=== PATIENT | male | born 1945 | race Caucasian/White ===

== ENCOUNTER 2019-06-12 10:20 | Outpatient (CLI) | payer OTHER, SELFPAY ==
[2019-06-12 10:59] LABS: Alanine Aminotransferase 30 U/L (4-50); Albumin Level 4.3 g/dL (3.5-5.1); Alkaline Phosphatase 69 U/L (38-126); Aspartate Amino Transferase 19 U/L (17-59); Bilirubin,Total 0.5 mg/dL (0.2-1.3); Blood Urea Nitrogen 17 mg/dL (9-20); Calcium 9.5 mg/dL (8.4-10.2); Carbon Dioxide 29 mmol/L (22-30); Chloride 102 mmol/L (98-107); Estimated Glomerular Filt Rate > 60; Glucose 100 mg/dL (75-110); Potassium 4.2 mmol/L (3.4-5.0); Sodium 137 mmol/L (137-145)
== END 2019-06-12 10:21 | disposition home or self-care (01) ==
PROVIDERS: PCP Family Medicine; Visit Provider Family Medicine
DX: I10 Essential (primary) hypertension (principal)
CPT/HCPCS: 36415; 80053

== ENCOUNTER 2019-11-24 11:19 | Outpatient (CLI) | payer OTHER, SELFPAY ==
[2019-11-24 11:48] LABS: Hematocrit 45.9 % (42.0-52.0); Hemoglobin 15.3 g/dL (14.0-18.0); Mean Corpuscular HGB Conc 33.3 g/dl (32-36); Mean Corpuscular Hemoglobin 30.5 pg (26-34); Mean Corpuscular Volume 91.4 fl (80-100); Platelet Count Result 228 k/mm3 (150-375); Red Blood Count 5.02 M/mm3 (4.6-6.20); Red Cell Distribution Width 13.5 % (11.5-14.5); White Blood Count 6.7 K/mm3 (4.5-10.0)
[2019-11-24 11:50] LABS: Add Urine Microscopic? NO; Appearance Urine Clear (Clear); Bilirubin Urine Negative (Negative); Blood Urine Negative (Negative); Color Urine Yellow (Yellow); Glucose Urine UA Negative (Negative); Ketones Urine Negative (Negative); Leukocyte Esterase Ur Negative LEU/UL (NEGATIVE); Nitrate Urine Negative (Negative); Protein Urine Negative (Negative); Specific Grav Ur 1.019 (1.001-1.035); Urobilinogen Urine Negative mg/dL (<2.0)
[2019-11-24 11:59] LABS: Alanine Aminotransferase 23 U/L (4-50); Albumin Level 4.3 g/dL (3.5-5.1); Alkaline Phosphatase 66 U/L (38-126); Anion Gap 7 mmol/L (8-16); Aspartate Amino Transferase 16 U/L (17-59); Bilirubin,Total 0.5 mg/dL (0.2-1.3); Blood Urea Nitrogen 17 mg/dL (9-20); Calcium 8.9 mg/dL (8.4-10.2); Carbon Dioxide 26 mmol/L (22-30); Chloride 101 mmol/L (98-107); Cholesterol 208 mg/dL (0-200); Estimated Glomerular Filt Rate > 60; Glucose 96 mg/dL (75-110); HDL Direct 62 mg/dL; Sodium 134 mmol/L (137-145); Triglycerides 129 mg/dL (<150)
[2019-11-24 12:10] LABS: LDL Cholesterol Direct 114 mg/dL
== END 2019-11-24 11:20 | disposition home or self-care (01) ==
PROVIDERS: PCP Family Medicine; Visit Provider Family Medicine
DX: Z00.00 Encounter for general adult medical examination without abnormal findings (principal); R35.1 Nocturia; I10 Essential (primary) hypertension
CPT/HCPCS: 36415; 80053; 80061; 81003; 85027

== ENCOUNTER → 2019-12-22 13:01 | Outpatient (CLI) | payer OTHER, SELFPAY ==
--- NOTE | ~2019-12-22 | CT_ITS ---
EXAMINATION: CT lung screening DATE: 12/22/2019 13:18 INDICATION: Personal history of tobacco dependence, prior smoker with 60 pack year history TECHNIQUE: Computed tomography (CT) of the chest was performed without intravenous contrast. The dose -length product (DLP) was 295.56 mGy-cm. Automated exposure control and iterative reconstruction tech [employer] were employed. COMPARISON: 12/26/2018 FINDINGS: No suspicious pulmonary nodules are identified. There is no pleural effusion or pneumothora x. The lungs are free of acute opacities. Mild emphysema is noted. Calcified pulmonary nodules and ca lcified right hilar and mediastinal lymph nodes are consistent with old granulomatous disease. No pat hologically enlarged thoracic lymph nodes are identified. The heart size is normal. There is a small sliding hiatal hernia. There is moderate thoracic spondylosis. IMPRESSION: 1. Lung-RADS category 1: Negative. Continue annual screening with noncontrast low-dose chest CT in 12 months. Reviewed, dictated and finalized at location B. IMPRESSION: 1. Lung-RADS category 1: Negative. Continue annual screening with noncontrast l ow-dose chest CT in 12 months.
== END ==
PROVIDERS: PCP Family Medicine; Visit Provider Family Medicine
DX: Z12.2 Encounter for screening for malignant neoplasm of respiratory organs (principal); Z87.891 Personal history of nicotine dependence
CPT/HCPCS: G0297

== ENCOUNTER 2020-06-11 08:55 | Outpatient (CLI) | payer OTHER, SELFPAY ==
[2020-06-11 09:29] LABS: Alanine Aminotransferase 26 U/L (4-50); Albumin Level 4.4 g/dL (3.5-5.1); Alkaline Phosphatase 60 U/L (38-126); Anion Gap 6 mmol/L (8-16); Aspartate Amino Transferase 18 U/L (17-59); Bilirubin,Total 0.5 mg/dL (0.2-1.3); Blood Urea Nitrogen 21 mg/dL (9-20); Calcium 9.4 mg/dL (8.4-10.2); Carbon Dioxide 29 mmol/L (22-30); Chloride 103 mmol/L (98-107); Estimated Glomerular Filt Rate 59; Glucose 101 mg/dL (75-110); Potassium 4.1 mmol/L (3.4-5.0); Sodium 138 mmol/L (137-145)
== END 2020-06-11 08:56 | disposition home or self-care (01) ==
PROVIDERS: PCP Family Medicine; Visit Provider Family Medicine
DX: I10 Essential (primary) hypertension (principal)
CPT/HCPCS: 36415; 80053

== ENCOUNTER 2020-12-03 07:33 | Outpatient (CLI) | payer OTHER, SELFPAY ==
[2020-12-03 08:29] LABS: Hematocrit 47.8 % (42.0-52.0); Hemoglobin 15.3 g/dL (14.0-18.0); Mean Corpuscular Volume 93.7 fl (80-100); Mean Platelet Volume 10.8 fl (7.4-10.4); Platelet Count Result 262 k/mm3 (150-375); Red Cell Distribution Width 13.7 % (11.5-14.5); White Blood Count 5.7 K/mm3 (4.5-10.0)
[2020-12-03 09:05] LABS: Albumin Level 4.4 g/dL (3.5-5.1); Alkaline Phosphatase 62 U/L (38-126); Anion Gap 9 mmol/L (8-16); Aspartate Amino Transferase 19 U/L (17-59); Bilirubin,Total 0.6 mg/dL (0.2-1.3); Blood Urea Nitrogen 26 mg/dL (9-20); Calcium 9.2 mg/dL (8.4-10.2); Carbon Dioxide 25 mmol/L (22-30); Chloride 104 mmol/L (98-107); Cholesterol 227 mg/dL (0-200); Estimated Glomerular Filt Rate > 60; Glucose 108 mg/dL (65-110); HDL Direct 65 mg/dL; Potassium 4.2 mmol/L (3.4-5.0); Sodium 138 mmol/L (137-145); Triglycerides 172 mg/dL (<150)
[2020-12-03 09:09] LABS: LDL Cholesterol Direct 103 mg/dL
[2020-12-03 09:25] LABS: Alanine Aminotransferase 24 U/L (4-50)
== END 2020-12-03 07:34 | disposition home or self-care (01) ==
PROVIDERS: PCP Family Medicine; Visit Provider Family Medicine
DX: E03.9 Hypothyroidism, unspecified (principal); I10 Essential (primary) hypertension; R53.83 Other fatigue; Z00.00 Encounter for general adult medical examination without abnormal findings
CPT/HCPCS: 36415; 80053; 80061; 84443; 85027

== ENCOUNTER 2021-03-03 09:09 | Outpatient (CLI) | payer OTHER, SELFPAY | END 2021-03-03 09:10 | disposition home or self-care (01) | PROVIDERS: Physician Assistant; PCP Family Medicine; Visit Provider Family Medicine | DX: E07.9 Disorder of thyroid, unspecified (principal) | CPT/HCPCS: 36415; 84443 ==

== ENCOUNTER → 2021-03-18 12:31 | Outpatient (CLI) | payer OTHER, SELFPAY ==
--- NOTE | ~2021-03-18 | CT_ITS ---
EXAMINATION: CT lung screening DATE: 03/18/2021 13:10 INDICATION: Personal history of nicotine dependence, prior smoker with 120 pack year history TECHNIQUE: Computed tomography (CT) of the chest was performed without intravenous contrast. The dose -length product (DLP) was 363.51 mGy-cm. Automated exposure control and iterative reconstruction tech [employer] were employed. COMPARISON: 12/22/2019 FINDINGS: There is mild emphysema. No suspicious pulmonary nodules are identified. The lungs are free of acute opacities. There is no pleural effusion or pneumothorax. No pathologically enlarged thoraci c lymph nodes are identified. The heart size is normal. Calcified pulmonary nodules and calcified rig ht hilar and mediastinal lymph nodes are consistent with old granulomatous disease. There is a small sliding hiatal hernia. Moderate thoracic spondylosis is noted. IMPRESSION: 1. Lung-RADS category 1: Negative. Continue annual screening with noncontrast low-dose chest CT in 12 months. Reviewed, dictated and finalized at location A. [facility] IMPRESSION: 1. Lung-RADS category 1: Negative. Continue annual screening with noncontrast l ow-dose chest CT in 12 months.
== END ==
PROVIDERS: PCP Family Medicine; Visit Provider Family Medicine
DX: Z12.2 Encounter for screening for malignant neoplasm of respiratory organs (principal); Z87.891 Personal history of nicotine dependence
CPT/HCPCS: 71271

== ENCOUNTER 2021-05-19 00:09 | Day surgery (SDC) | payer OTHER, SELFPAY ==
[2021-05-06 15:28] VITALS: BMI 37.3
[2021-05-19 08:34] VITALS: BP 142/80; PULSE 72; RESP 18; TEMP 36.8; O2SAT 98
[2021-05-19] MEDS: LACTATED RINGERS 1,000 ML 150 ML IV CONT (08:37)
--- NOTE | 2021-05-19 08:57 | P.PNAN_ITS ---
Anes - Initial Pre Proc Eval Procedure: Operation Date: 05/19/21 09:30 Proposed Procedures p Screening Colonoscopy - aJson Gomez MD Date/Time: 05/19/21 08:57 Surgeon: Jason Gomez MD Pre Op Diagnosis: neoplasm screening Patient Data Age: 75 Gender: M Height: 1.83 m Weight: 126.3 kg Last Vital Signs Temp 36.8 C 05/19/21 08:34 Pulse 72 05/19/21 08:34 Resp 18 05/19/21 08:34 BP 142/80 H 05/19/21 08:34 Pulse Ox 98 05/19/21 08:34 Allergies Allergy/AdvReac Type Severity Reaction Status Date / Time No Known Allergies Allergy Verified 05/19/21 08:32 Home Medications Medication Instructions Recorded Confirmed Type aspirin 325 mg tablet 325 mg PO DAILY 03/14/19 05/19/21 History finasteride 5 mg tablet 5 mg PO DAILY #90 tablet 02/26/21 05/19/21 Rx gabapentin 300 mg capsule See Rx Instructions .ROUTE 02/26/21 05/19/21 Rx .COMPLEX #90 cap lisinopril 20 1 tablet PO DAILY #90 tablet 02/26/21 05/19/21 Rx mg-hydrochlorothiazide 25 mg tablet Patient hx anesthesia problems: none Family hx anesthesia problems: none Results Review: All pre-operative results and documents have been reviewed as part of the pre-operative evaluation. [facility] Past Medical History Medical History (Updated 05/19/21 @ 09:19 by Jason Gomez MD) Chronic bilateral low back pain Essential (primary) hypertension Mild intermittent asthma Neuropathy MONI (obstructive sleep apnea) Personal history of other malignant neoplasm of kidney Positive colorectal cancer screening using Cologuard test Family History Family History Sibling Malignant neoplasm of prostate Family history of diabetes mellitus in first degree relative Family history of chronic obstructive pulmonary disease Mother Family history of lymphoma Social History Social History Smoking packs per day: 2 Smoking cigarettes per day: 40.0 Years smoked: 60 Smoking pack-years: 120.00 Smoking status: Former smoker Tobacco type: cigarettes Second hand tobacco smoke exposure: No Smoking end date: 04/12/15 Alcohol intake: current Drinks per week: 6 Substance use: never Substance use type: does not use Living arrangements: with family Gender identity (if verbalized by the patient): Male Sexual Orientation (if Verbalized by the Patient): Straight or Heterosexual Spiritual care concerns: No Anes - Eval Final PreProcedure Day of Procedure 05/19/21 08:57 Patient weight: obese Heart: regular rate and rhythm Lungs: clear to auscultation and normal air movement Airway: Mallampati scale class III Neurological: alert and oriented Last oral intake: >/= 8 hours ASA classification: III Emergent: no Anesthetic plan: proceed Anesthesia type and monitoring: general GIVS and standard monitoring Results Review: All pre-operative results and documents have been reviewed as part of the pre-operative evaluation. Informed Consent: The patient's anesthetic plan and its attendant risks and benefits were discussed with the patient/family/POA. Questions were solicited and answers provided to the satisfaction of the patient/family/POA.
--- NOTE | 2021-05-19 09:17 | PM.HPGS ---
History of Present Illness History of Present Illness Consent: Risks, benefits, and alternatives have been discussed and questions answered. Patient agrees to proceed with procedure. Chief complaint: neoplasm screening Narrative: John Xie is a 75 year old male who had cologuard + over a year ago but could not reschedule colonoscopy after COVID, he had a colonoscopy but more than 25 years ago. Review of Systems Constitutional: Constitutional: Denies headache(s) and Denies weakness Eyes: Eyes: Denies blurry vision ENT: Reports Normal hearing present, Denies headache(s) and Denies neck pain Cardiovascular: Cardiovascular: Denies chest pain and Denies dyspnea Respiratory: Respiratory: Denies dyspnea Gastrointestinal: Gastrointestinal: Reports no additional gastrointestinal complaints Genitourinary: Genitourinary: Denies dysuria Musculoskeletal: Musculoskeletal: Denies neck pain Integumentary/Breasts: Skin/Breast: Denies dry skin Neurologic: Reports Normal hearing present, Denies headache(s) and Denies weakness Psychiatric: Psychiatric: Denies anxiety Endocrine: Endocrine: Denies change in body appearance Hematologic/Lymphatic: Hematologic/Lymphatic: Denies easy bleeding Allergic/Immunologic: Allergic/Immunologic: Denies urticaria PMFSH Past Medical History Medical History (Updated 05/19/21 @ 09:19 by Jason Gomez MD) Chronic bilateral low back pain Essential (primary) hypertension Mild intermittent asthma Neuropathy MONI (obstructive sleep apnea) Personal history of other malignant neoplasm of kidney Positive colorectal cancer screening using Cologuard test Family History Family History Sibling Malignant neoplasm of prostate Family history of diabetes mellitus in first degree relative Family history of chronic obstructive pulmonary disease Mother Family history of lymphoma Social History Social History Smoking packs per day: 2 Smoking cigarettes per day: 40.0 Years smoked: 60 Smoking pack-years: 120.00 Smoking status: Former smoker Tobacco type: cigarettes Second hand tobacco smoke exposure: No Smoking end date: 04/12/15 Alcohol intake: current Drinks per week: 6 Substance use: never Substance use type: does not use Living arrangements: with family Gender identity (if verbalized by the patient): Male Sexual Orientation (if Verbalized by the Patient): Straight or Heterosexual Spiritual care concerns: No Meds Home Medications and Allergies Home Medications Medication Instructions Recorded Confirmed Type aspirin 325 mg tablet 325 mg PO DAILY 03/14/19 05/19/21 History finasteride 5 mg tablet 5 mg PO DAILY #90 tablet 02/26/21 05/19/21 Rx gabapentin 300 mg capsule See Rx Instructions .ROUTE 02/26/21 05/19/21 Rx .COMPLEX #90 cap lisinopril 20 1 tablet PO DAILY #90 tablet 02/26/21 05/19/21 Rx mg-hydrochlorothiazide 25 mg tablet Allergies Allergy/AdvReac Type Severity Reaction Status Date / Time No Known Allergies Allergy Verified 05/19/21 08:32 Vital Signs Vital Signs - 24 hr 05/19/21 08:34 Temperature 98.3 F Pulse Rate 72 Respiratory Rate 18 Blood Pressure 142/80 H Pulse Oximetry 98 Exam Const: General: comfortable and no acute distress HENMT: General nose exam: Normal nares present Eyes: General: appearance normal, both eyes and all related structures Neck: Neck: no JVD Resp: Auscultation: clear to auscultation bilaterally Cardio: Rate: regular rate Rhythm: regular rhythm GI: Inspection: non-distended GI Palp: Yes Soft to palpation Skin: General skin exam: normal color Neuro: General: gait normal Speech: normal speech Extrem: General: normal to inspection Psych: Mental Status: mental status grossly normal Assessment and Plan Assessment and plan (1) Positive colorectal cancer s
[2021-05-19 09:46] VITALS: BP 102/67; PULSE 60; RESP 18; O2SAT 98
[2021-05-19 09:56] VITALS: BP 121/81; PULSE 61; RESP 18; O2SAT 98
[2021-05-19 10:06] VITALS: BP 134/95; PULSE 64; RESP 24; O2SAT 99
== END 2021-05-19 10:20 | disposition home or self-care (01) ==
PROVIDERS: PCP Family Medicine; Visit Provider Internal Medicine Gastroenterology
PROC: 0DJD8ZZ Inspection of Lower Intestinal Tract, Via Natural or Artificial Opening Endoscopic (ICD-10-PCS; CPT 45378; principal; 2021-05-19 09:30)
DX: R19.5 Other fecal abnormalities (principal); K57.30 Diverticulosis of large intestine without perforation or abscess without bleeding; K64.8 Other hemorrhoids; D12.3 Benign neoplasm of transverse colon; I10 Essential (primary) hypertension; J45.20 Mild intermittent asthma, uncomplicated; G62.9 Polyneuropathy, unspecified; Z85.528 Personal history of other malignant neoplasm of kidney; Z79.82 Long term (current) use of aspirin; Z87.891 Personal history of nicotine dependence; E66.9 Obesity, unspecified; Z68.37 Body mass index [BMI] 37.0-37.9, adult
CPT/HCPCS: 45385; 88305; J2704; J7120

== ENCOUNTER 2021-07-04 08:38 | Outpatient (CLI) | payer OTHER, SELFPAY ==
[2021-07-04 09:10] LABS: Alanine Aminotransferase 23 U/L (4-50); Albumin Level 4.4 g/dL (3.5-5.1); Alkaline Phosphatase 56 U/L (38-126); Anion Gap 8 mmol/L (8-16); Aspartate Amino Transferase 18 U/L (17-59); Bilirubin,Total 0.6 mg/dL (0.2-1.3); Blood Urea Nitrogen 22 mg/dL (9-20); Carbon Dioxide 28 mmol/L (22-30); Chloride 100 mmol/L (98-107); Estimated Glomerular Filt Rate > 60; Glucose 105 mg/dL (65-110); Potassium 4.1 mmol/L (3.4-5.0); Sodium 136 mmol/L (137-145)
== END 2021-07-04 08:39 | disposition home or self-care (01) ==
LOC: ANHLAB 08:40
PROVIDERS: PCP Family Medicine; Visit Provider Family Medicine
DX: I10 Essential (primary) hypertension (principal)
CPT/HCPCS: 36415; 80053

== ENCOUNTER 2021-09-01 10:56 | Outpatient (CLI) | payer OTHER, SELFPAY ==
--- NOTE | ~2021-09-01 | XR_ITS ---
EXAMINATION: XR foot RT 2V DATE: 09/01/2021 11:21 INDICATION: Pain at the base of the right great toe TECHNIQUE: Dorsoplantar and lateral views of the right foot were obtained. COMPARISON: None. FINDINGS: Bone alignment is normal in the right foot. No acute fracture. Cerclage wire fixation at the metadiap hyseal region of the distal right fibula. 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 No erosions or periosteal reaction. Tiny heterotopic ossicle medial to the head of the first meta tarsal. IMPRESSION: 1. 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 No acute osseous abnormality. Reviewed, dictated and finalized at location B. IMPRESSION: 1. 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 No acute osseous abnormality.
[2021-09-01 11:32] LABS: Basophils Percent Auto 0.6 % (0.2-1.2); Eosinophils Absolute Auto 0.1 K/mm3 (0-0.3); Eosinophils Percent Auto 1.6 % (0-4.4); Hematocrit 47.4 % (42.0-52.0); Hemoglobin 15.8 g/dL (14.0-18.0); Immature Granulocyte Absolute 0.02 K/mm3 (0.00-0.031); Immature Granulocyte Percent A 0.3 % (0-0.5); Lymphocytes Absolute Auto 1.74 K/mm3 (0.9-3.2); Lymphocytes Percent Auto 25.4 % (18.3-44.2); Mean Corpuscular HGB Conc 33.3 g/dl (32-36); Mean Corpuscular Hemoglobin 30.6 pg (26-34); Mean Corpuscular Volume 91.7 fl (80-100); Mean Platelet Volume 11.3 fl (7.4-10.4); Monocytes Absolute Auto 0.5 K/mm3 (0.1-0.6); Monocytes Percent Auto 7.6 % (2.6-8.5); Neutrophils Absolute Auto 4.4 K/mm3 (1.3-6.7); Neutrophils Percent Auto 64.5 % (45.5-73.1); Platelet Count Result 262 k/mm3 (150-375); Red Blood Count 5.17 M/mm3 (4.6-6.20); Red Cell Distribution Width 13.2 % (11.5-14.5); White Blood Count 6.8 K/mm3 (4.5-10.0)
[2021-09-01 11:46] LABS: Uric Acid 8.1 mg/dL (3.5-8.5)
== END 2021-09-01 10:57 | disposition home or self-care (01) ==
LOC: ANHLAB 11:01
PROVIDERS: PCP Family Medicine; Visit Provider Nurse Practitioner Family
DX: M79.674 Pain in right toe(s) (principal); M19.071 Primary osteoarthritis, right ankle and foot
CPT/HCPCS: 36415; 73620; 84550; 85025

== ENCOUNTER 2021-10-19 11:28 | Emergency (ER) | payer OTHER, SELFPAY ==
--- NOTE | ~2021-10-19 | XR_ITS ---
EXAMINATION: XR chest 2V DATE: 10/19/2021 12:09 INDICATION: Cough. Generalized chest wall pain. TECHNIQUE: PA and lateral views of the chest were obtained. COMPARISON: Chest CT dated 03/18/2021 FINDINGS: The lungs are clear with no focal airspace opacities, pulmonary edema, pleural effusion or pneumothor ax. The cardiomediastinal silhouette is normal. Calcified right hilar and mediastinal lymph nodes con sistent with old granulomatous disease. Moderate thoracic spondylosis. IMPRESSION: 1. No acute cardiopulmonary disease. Reviewed, dictated and finalized at location A.
[2021-10-19 11:34] VITALS: BP 119/76; PULSE 90; RESP 16; TEMP 36.4; O2SAT 98
--- NOTE | 2021-10-19 11:56 | ED.URI ---
HPI - URI/Sore Throat General Chief Complaint: Upper Respiratory Infection Stated Complaint: Headache,Congestion Time Seen by Provider: 10/19/21 11:48 Source: patient Mode of arrival: ambulatory Limitations: no limitations History of Present Illness HPI Narrative: Patient presents today complaining of 3-day history cough that has been mildly productive, chest wall pain with coughing, and postnasal drip. Denies fever shortness of breath, nasal congestion. He has been taking antihistamines and NyQuil with some relief. Denies any history of asthma or COPD. He is a previous smoker that quit a few years ago. He has had his COVID-19 and influenza vaccines. He took a home COVID-19 test yesterday that was negative. Related Data Home Medications Medication Instructions Recorded Confirmed aspirin 325 mg tablet 325 mg PO DAILY 03/14/19 10/19/21 Review of Systems Review of Systems: CONSTITUTIONAL: Denies body aches, fever, chills, or sweats. EYES: Denies visual changes, redness, or discharge. ENT: Denies rhinorrhea, congestion, sore throat, or otalgia.+ Postnasal drip CARDIOVASCULAR: Denies chest pain, palpitations, or edema. RESPIRATORY: Denies dyspnea.+ Cough GASTROINTESTINAL: Denies abdominal pain, nausea, vomiting, or diarrhea. GENITOURINARY: Denies dysuria or hematuria. SKIN: Denies rash, itching, or wounds. MUSCULOSKELETAL: Denies back pain, joint pain, or myalgia. NEUROLOGIC: Denies headache, numbness, tingling, or weakness. PSYCH: Denies depression or anxiety. [facility] Past Medical History Medical History Chronic bilateral low back pain Essential (primary) hypertension Mild intermittent asthma Neuropathy Obesity MONI (obstructive sleep apnea) Personal history of other malignant neoplasm of kidney Positive colorectal cancer screening using Cologuard test Family History Family History Sibling Malignant neoplasm of prostate Family history of diabetes mellitus in first degree relative Family history of chronic obstructive pulmonary disease Mother Family history of lymphoma Social History Social History Smoking packs per day: 2 Smoking cigarettes per day: 40.0 Years smoked: 60 Smoking pack-years: 120.00 Smoking status: Former smoker Tobacco type: cigarettes Second hand tobacco smoke exposure: No Smoking end date: 04/12/15 Alcohol intake: current Drinks per week: 6 Substance use: never Substance use type: does not use Gender identity (if verbalized by the patient): Male Sexual Orientation (if Verbalized by the Patient): Straight or Heterosexual Spiritual care concerns: No Comments At time of signature, I have reviewed and agree with nursing past medical, surgical, social and family history unless otherwise noted. Please see nursing chart for further information. There is no relevant family history pertinent to the presenting complaint Exam Narrative: GENERAL: Well-appearing, well-nourished, and in no acute distress. HEAD: Normocephalic, atraumatic. EYES: EOMI. No redness or drainage. Conjunctivae normal. ENT: Mucous membranes pink and moist. Nares clear. No rhinorrhea. TMs normal bilaterally. Throat normal. Uvula midline. NECK: Normal AROM. Supple. No lymphadenopathy. CHEST: No respiratory distress. Clear to auscultation. HEART: Regular rate and rhythm. No murmur appreciated. Normal peripheral pulses. EXTREMITIES: Normal range of motion. No edema. SKIN: Warm, dry, no rash. Capillary refill normal. Normal skin turgor. NEURO: No focal deficits. Alert and oriented x3. Gait steady. PSYCH: Normal affect. No signs of depression or anxiety. Course Course Level of Care: Express Care Visit Vital Signs Vital signs: Vital Signs Temperature 97.5 F L 10/19/21 11:34 Pulse Rate 90 10/19/21 11
== END 2021-10-19 12:42 | disposition home or self-care (01) ==
PROVIDERS: Emergency Provider Nurse Practitioner; PCP Family Medicine
DX: J06.9 Acute upper respiratory infection, unspecified (principal); J40 Bronchitis, not specified as acute or chronic; Z87.891 Personal history of nicotine dependence; I10 Essential (primary) hypertension; J45.909 Unspecified asthma, uncomplicated; G47.33 Obstructive sleep apnea (adult) (pediatric); G62.9 Polyneuropathy, unspecified; Z85.528 Personal history of other malignant neoplasm of kidney; E66.9 Obesity, unspecified; Z68.37 Body mass index [BMI] 37.0-37.9, adult
CPT/HCPCS: 71046; 99213; G0463

== ENCOUNTER 2021-11-26 08:06 | Emergency (ER) | payer OTHER, SELFPAY ==
[2021-11-26 08:10] VITALS: BP 136/53; PULSE 65; RESP 16; TEMP 36.6; O2SAT 97
--- NOTE | 2021-11-26 08:14 | ED.WOUNDLAC ---
HPI - Wound/Laceration General Chief Complaint: Skin/Abscess/Foreign Body Stated Complaint: Hook in finger left hand Time Seen by Provider: 11/26/21 08:20 Source: patient Mode of arrival: ambulatory Limitations: no limitations History of Present Illness HPI narrative: 76-year-old male presented for complaint of fishhook embedded into the left ring finger, injury occurred about 1 hour prior to arrival. He came directly to [facility]. Takes daily ASA 325mg. Unsure of tetanus vaccination status. Related Data Home Medications Medication Instructions Recorded Confirmed aspirin 325 mg tablet 325 mg PO DAILY 03/14/19 11/26/21 Allergies Allergy/AdvReac Type Severity Reaction Status Date / Time No Known Allergies Allergy Verified 11/26/21 08:20 Review of Systems Review of Systems: CONSTITUTIONAL: Denies body aches, fever, chills, or sweats. EYES: Denies visual changes, redness, or discharge. ENT: Denies rhinorrhea, congestion, sore throat, or otalgia. CARDIOVASCULAR: Denies chest pain, palpitations, or edema. RESPIRATORY: Denies cough or dyspnea. GASTROINTESTINAL: Denies abdominal pain, nausea, vomiting, or diarrhea. SKIN: fish hook in finger MUSCULOSKELETAL: Denies back pain, joint pain, or myalgia. NEUROLOGIC: Denies headache, numbness, tingling, or weakness. [facility] Past Medical History Medical History Chronic bilateral low back pain Essential (primary) hypertension Mild intermittent asthma Neuropathy Obesity MONI (obstructive sleep apnea) Personal history of other malignant neoplasm of kidney Positive colorectal cancer screening using Cologuard test Family History Family History Sibling Malignant neoplasm of prostate Family history of diabetes mellitus in first degree relative Family history of chronic obstructive pulmonary disease Mother Family history of lymphoma Social History Social History Smoking packs per day: 2 Smoking cigarettes per day: 40.0 Years smoked: 60 Smoking pack-years: 120.00 Smoking status: Former smoker Tobacco type: cigarettes Second hand tobacco smoke exposure: No Smoking end date: 04/12/15 Alcohol intake: current Drinks per week: 6 Substance use: never Substance use type: does not use Gender identity (if verbalized by the patient): Male Sexual Orientation (if Verbalized by the Patient): Straight or Heterosexual Spiritual care concerns: No Comments At time of signature, I have reviewed and agree with nursing past medical, surgical, social and family history unless otherwise noted. Please see nursing chart for further information. There is no relevant family history pertinent to the presenting complaint Exam Narrative: GENERAL: Well-appearing EYES: conjunctivae clear, and EOMI. ENT: Mucous membranes moist. CHEST: No respiratory distress. SKIN: Warm, dry. Fish hook left ring finger distal phalanx ulnar aspect NEURO: Alert and oriented x3. PSYCH: Normal mood and affect Course Course Emergency Course: Patient is aware of diagnosis, understands and agrees to treatment plan. Anticipatory guidance given. Patient agrees to follow-up as directed and is aware of reasons to seek care at the emergency department. Portions of this record may have been created with voice recognition software Level of Care: Express Care Visit Vital Signs Vital signs: Vital Signs Temperature 97.9 F 11/26/21 08:10 Pulse Rate 65 11/26/21 08:10 Respiratory Rate 16 11/26/21 08:10 Blood Pressure 136/53 L 11/26/21 08:10 Pulse Oximetry 97 11/26/21 08:10 Oxygen Delivery Room Air 11/26/21 08:10 Temperature 97.9 F 11/26/21 08:10 Pulse Rate 65 11/26/21 08:10 Respiratory Rate 16 11/26/21 08:10 Blood Pressure 136/53 L 11/26/21 08:10 Pulse Oximetry 97 11/26/21 08:
[2021-11-26] MEDS: TETANUS,DIPHTHERIA,AC PERTUSSIS ADULT (0.5 ML) BOOSTRIX IM (08:27)
== END 2021-11-26 08:46 | disposition home or self-care (01) ==
PROVIDERS: Emergency Provider Nurse Practitioner Family; PCP Family Medicine
DX: S61.245A Puncture wound with foreign body of left ring finger without damage to nail, initial encounter (principal); X58.XXXA Exposure to other specified factors, initial encounter; Z23 Encounter for immunization; Z87.891 Personal history of nicotine dependence; I10 Essential (primary) hypertension; J45.909 Unspecified asthma, uncomplicated; G62.9 Polyneuropathy, unspecified; E66.9 Obesity, unspecified; Z68.38 Body mass index [BMI] 38.0-38.9, adult; G47.33 Obstructive sleep apnea (adult) (pediatric); Z85.528 Personal history of other malignant neoplasm of kidney; Z79.82 Long term (current) use of aspirin
CPT/HCPCS: 90471; 90715; 99213; G0463

== ENCOUNTER 2021-11-28 10:04 | Outpatient (CLI) | payer OTHER, SELFPAY ==
[2021-11-28 10:34] LABS: Appearance Urine Clear (Clear); Bilirubin Urine Negative (Negative); Color Urine Yellow (Yellow); Glucose Urine UA Negative (Negative); Ketones Urine Negative (Negative); Leukocyte Esterase Ur Negative LEU/UL (NEGATIVE); Nitrate Urine Negative (Negative); Protein Urine Negative (Negative); Urobilinogen Urine 0.2 mg/dL (<2.0); pH Urine 6.5 (5.0-9.0)
[2021-11-28 10:41] LABS: Add Urine Microscopic? YES; Blood Urine Trace-Intact (Negative)
[2021-11-28 10:46] LABS: Mucus Urine Rare /lpf; RBC Urine 0-2 /hpf (0-2); WBC Urine 0-3 /hpf (0-3)
[2021-11-28 10:48] LABS: Alanine Aminotransferase 21 U/L (6-50); Albumin Level 4.1 g/dL (3.5-5.1); Alkaline Phosphatase 59 U/L (38-126); Anion Gap 9 mmol/L (8-16); Aspartate Amino Transferase 16 U/L (17-59); Bilirubin,Total 0.5 mg/dL (0.2-1.3); Blood Urea Nitrogen 23 mg/dL (9-20); Calcium 9.3 mg/dL (8.4-10.2); Carbon Dioxide 27 mmol/L (22-30); Chloride 101 mmol/L (98-107); Cholesterol 210 mg/dL (0-200); Estimated Glomerular Filt Rate 54; Glucose 104 mg/dL (65-110); HDL Direct 57 mg/dL; Potassium 4.3 mmol/L (3.4-5.0); Sodium 137 mmol/L (137-145); Triglycerides 157 mg/dL (<150)
[2021-11-28 11:00] LABS: LDL Cholesterol Direct 106 mg/dL
[2021-11-28 11:03] LABS: Hemoglobin A1C 5.6 % (<5.7)
[2021-11-28 13:21] LABS: Prostate Specific Antigen 0.4 ng/mL (< OR = 4.0)
== END 2021-11-28 10:05 | disposition home or self-care (01) ==
LOC: ANHLAB 10:05
PROVIDERS: PCP Family Medicine; Visit Provider Nurse Practitioner Family
DX: N39.0 Urinary tract infection, site not specified (principal); E03.9 Hypothyroidism, unspecified; E78.2 Mixed hyperlipidemia; Z12.5 Encounter for screening for malignant neoplasm of prostate; R73.01 Impaired fasting glucose; G47.33 Obstructive sleep apnea (adult) (pediatric); E04.1 Nontoxic single thyroid nodule; I10 Essential (primary) hypertension
CPT/HCPCS: 36415; 80053; 80061; 81001; 83036; 84153; 84443; G0103

== ENCOUNTER → 2021-12-10 09:31 | Outpatient (CLI) | payer OTHER, SELFPAY ==
--- NOTE | ~2021-12-10 | XR_ITS ---
EXAM: XR_CERV2-3V_CR DATE: 12/10/2021 10:05 HISTORY: M54.2 - Cervicalgia . COMPARISON: None available. FINDINGS: C6 and below are not well-visualized in the lateral projection. Decreased mineralization. C raniocervical association and atlantoaxial joint are normal. No prevertebral soft tissue swelling. St raightening of the upper cervical spine Vertebral bodies are aligned. Vertebral body heights are main tained. Multilevel mild disc space narrowing. Multilevel facet sclerosis and hypertrophy. IMPRESSION: Limited examination as detailed above. Osteopenia. Multilevel mild degenerative disc dise ase. Multilevel facet arthropathy. Reviewed, dictated and finalized at location K. IMPRESSION: Limited examination as detailed above. Osteopenia. Multilevel mild degenerative disc disease. Multilevel facet arthropathy.
--- NOTE | ~2021-12-10 | XR_ITS ---
EXAM: XR lumbar spine 2-3V DATE: 12/10/2021 10:06 HISTORY: M54.5 - Low back pain . COMPARISON: EXAM: XR lumbar spine 2-3V DATE: 12/10/2021 10:06 HISTORY: M54.5 - Low back pain . COMPARISON: None available. FINDINGS: 5 nonrib-bearing lumbar-type vertebral bodies. Pedicles intact. Normal vertebral body alig nment. Vertebral body heights preserved. Multilevel disc space narrowing and marginal osteophytosis, severe at L5-S1, mild at L3-4, and moderate at all remaining lumbar levels. Multilevel facet arthropa thy and sclerosis with interspinous narrowing at all lumbar levels. No fracture or dislocation. Mild fusiform dilation of the abdominal aortic aneurysm. IMPRESSION: Multilevel degenerative disc disease. Multilevel severe facet arthropathy. 3.3 cm abdomin al aortic aneurysm, consider ultrasound of the aorta for further evaluation and to establish a baseli ne for future surveillance. Reviewed, dictated and finalized at location K. IMPRESSION: Multilevel degenerative disc disease. Multilevel severe facet arthr opathy. 3.3 cm abdominal aortic aneurysm, consider ultrasound of the aorta for further evaluation and to establish a baseline for future surveillance.
== END ==
PROVIDERS: PCP Family Medicine; Visit Provider Family Medicine
DX: M47.817 Spondylosis without myelopathy or radiculopathy, lumbosacral region (principal); M47.812 Spondylosis without myelopathy or radiculopathy, cervical region
CPT/HCPCS: 72040; 72100

== ENCOUNTER → 2021-12-19 09:02 | Outpatient (CLI) | payer OTHER, SELFPAY ==
--- NOTE | ~2021-12-19 | US_ITS ---
EXAMINATION: US aorta DATE: 12/19/2021 09:38 INDICATION: Abdominal aortic aneurysm without rupture TECHNIQUE: Grayscale, color Doppler, and pulsed Doppler images of the aorta and common iliac arteries were obtained. COMPARISON: CT abdomen and pelvis dated 08/16/2015 FINDINGS: The proximal aorta measures 3.1 cm. The mid aorta measures 2.3 cm. The distal aorta measures 2.3 cm. The right common iliac artery measures 1.5 cm. The left common iliac artery measures 1.4 cm. IMPRESSION: 1. No abdominal aortic aneurysm. Reviewed, dictated and finalized at location A.
== END ==
PROVIDERS: PCP Family Medicine; Visit Provider Family Medicine
DX: I71.4 Abdominal aortic aneurysm, without rupture (principal)
CPT/HCPCS: 76775

== ENCOUNTER 2022-03-11 11:10 | Outpatient (CLI) | payer OTHER, SELFPAY ==
[2022-03-11 11:50] LABS: Alanine Aminotransferase 28 U/L (6-50); Albumin Level 4.5 g/dL (3.5-5.1); Alkaline Phosphatase 53 U/L (38-126); Anion Gap 9 mmol/L (8-16); Aspartate Amino Transferase 18 U/L (17-59); Bilirubin,Total 0.8 mg/dL (0.2-1.3); Blood Urea Nitrogen 18 mg/dL (9-20); Calcium 8.6 mg/dL (8.4-10.2); Carbon Dioxide 26 mmol/L (22-30); Chloride 100 mmol/L (98-107); Estimated Glomerular Filt Rate > 60; Glucose 98 mg/dL (65-110); Potassium 4.1 mmol/L (3.4-5.0); Sodium 135 mmol/L (137-145)
== END 2022-03-11 11:11 | disposition home or self-care (01) ==
LOC: ANHLAB 11:12
PROVIDERS: PCP Family Medicine; Visit Provider Nurse Practitioner Family
DX: I10 Essential (primary) hypertension (principal)
CPT/HCPCS: 36415; 80053

== ENCOUNTER 2022-06-09 11:00 | Outpatient (CLI) | payer OTHER, SELFPAY ==
[2022-06-09 12:21] LABS: Alanine Aminotransferase 29 U/L (6-50); Alkaline Phosphatase 63 U/L (38-126); Anion Gap 9 mmol/L (8-16); Aspartate Amino Transferase 18 U/L (17-59); Bilirubin,Total 0.4 mg/dL (0.2-1.3); Blood Urea Nitrogen 29 mg/dL (9-20); Calcium 8.7 mg/dL (8.4-10.2); Carbon Dioxide 26 mmol/L (22-30); Chloride 106 mmol/L (98-107); Estimated Glomerular Filt Rate 59; Glucose 95 mg/dL (65-110); Potassium 4.1 mmol/L (3.4-5.0); Sodium 141 mmol/L (137-145)
== END 2022-06-09 11:01 | disposition home or self-care (01) ==
PROVIDERS: PCP Family Medicine; Visit Provider Family Medicine
DX: I10 Essential (primary) hypertension (principal)
CPT/HCPCS: 36415; 80053

== ENCOUNTER → 2022-06-23 08:15 | Outpatient (CLI) | payer OTHER, SELFPAY ==
--- NOTE | ~2022-06-23 | CT_ITS ---
EXAMINATION: CT lung screening DATE: 06/23/2022 08:26 INDICATION: lung cancer screening TECHNIQUE: Computed tomography (CT) of the chest was performed without intravenous contrast. Addition al 3D reconstructions utilizing coronal maximum intensity projection (MIP) were performed. Automated exposure control and iterative reconstruction technique were employed. The dose-length product was 31 6.43 mGy-cm. COMPARISON: None FINDINGS: Couple small calcified right lower lobe nodules along with calcified right hilar and mediastinal lymp h nodes consistent with old granulomatous disease. 2 mm noncalcified left upper lobe nodule. Addition al 5 mm pleural-based nodule at the posterior right lower lobe. No pneumonia, pulmonary edema, pleura l effusion or pneumothorax. Heart size normal. Atherosclerotic coronary artery calcific lesion. No pe ricardial effusion. Small sliding-type hiatal hernia. Thoracic aorta is normal in caliber. No patholo gically enlarged thoracic lymphadenopathy. A few small splenic calcific lesions consistent with old g ranulomatous disease. 1.6 cm cyst at the upper pole of the right kidney. Moderate to severe thoracic spondylosis. IMPRESSION: 1. Lung-RADS category 2: Benign appearance or behavior. Continue annual screening with noncontrast lo w-dose chest CT in 12 months. Reviewed, dictated and finalized at location L. IMPRESSION: 1. Lung-RADS category 2: Benign appearance or behavior. Continue annual screeni ng with noncontrast low-dose chest CT in 12 months.
== END ==
PROVIDERS: PCP Family Medicine; Visit Provider Family Medicine
DX: Z12.2 Encounter for screening for malignant neoplasm of respiratory organs (principal); Z87.891 Personal history of nicotine dependence
CPT/HCPCS: 71271

== ENCOUNTER 2022-11-27 09:00 | Outpatient (CLI) | payer OTHER, SELFPAY ==
[2022-11-27 10:50] LABS: Hematocrit 46.6 % (42.0-52.0); Hemoglobin 15.2 g/dL (14.0-18.0); Mean Corpuscular HGB Conc 32.6 g/dl (32-36); Mean Corpuscular Hemoglobin 30.3 pg (26-34); Mean Corpuscular Volume 92.8 fl (80-100); Mean Platelet Volume 11.5 fl (7.4-10.4); Platelet Count Result 232 k/mm3 (150-375); Red Blood Count 5.02 M/mm3 (4.6-6.20); Red Cell Distribution Width 13.8 % (11.5-14.5); White Blood Count 6.2 K/mm3 (4.5-10.0)
[2022-11-27 10:55] LABS: Appearance Urine Clear (Clear); Bilirubin Urine Negative (Negative); Blood Urine Negative (Negative); Color Urine Yellow (Yellow); Glucose Urine UA Negative (Negative); Ketones Urine Negative (Negative); Leukocyte Esterase Ur Negative LEU/UL (NEGATIVE); Nitrate Urine Negative (Negative); Protein Urine Negative (Negative); Specific Grav Ur 1.018 (1.001-1.035); Urobilinogen Urine 0.2 mg/dL (<2.0); pH Urine 5.5 (5.0-9.0)
[2022-11-27 11:01] LABS: Add Urine Microscopic? NO
[2022-11-27 11:08] LABS: Alanine Aminotransferase 26 U/L (6-50); Albumin Level 4.3 g/dL (3.5-5.1); Alkaline Phosphatase 48 U/L (38-126); Anion Gap 8 mmol/L (8-16); Aspartate Amino Transferase 20 U/L (17-59); Bilirubin,Total 0.7 mg/dL (0.2-1.3); Blood Urea Nitrogen 27 mg/dL (9-20); Calcium 8.8 mg/dL (8.4-10.2); Carbon Dioxide 26 mmol/L (22-30); Chloride 103 mmol/L (98-107); Cholesterol 226 mg/dL (0-200); Estimated Glomerular Filt Rate 59; Glucose 102 mg/dL (65-110); HDL Direct 53 mg/dL; Potassium 4.6 mmol/L (3.4-5.0); Sodium 137 mmol/L (137-145); Triglycerides 175 mg/dL (<150); Uric Acid 8.8 mg/dL (3.5-8.5)
[2022-11-27 11:18] LABS: LDL Cholesterol Direct 124 mg/dL
== END 2022-11-27 09:01 | disposition home or self-care (01) ==
PROVIDERS: PCP Family Medicine; Visit Provider Family Medicine
DX: Z00.00 Encounter for general adult medical examination without abnormal findings (principal); R53.83 Other fatigue; E78.5 Hyperlipidemia, unspecified; I10 Essential (primary) hypertension
CPT/HCPCS: 36415; 80053; 80061; 81003; 84443; 84550; 85027

== ENCOUNTER 2023-01-21 08:49 | Outpatient (CLI) | payer OTHER, SELFPAY ==
[2023-01-21 10:26] LABS: Anion Gap 7 mmol/L (8-16); Blood Urea Nitrogen 21 mg/dL (9-20); Calcium 8.8 mg/dL (8.4-10.2); Carbon Dioxide 27 mmol/L (22-30); Chloride 105 mmol/L (98-107); Estimated Glomerular Filt Rate 59; Glucose 100 mg/dL (65-110); Sodium 139 mmol/L (137-145)
== END 2023-01-21 08:50 | disposition home or self-care (01) ==
LOC: ANHLAB 08:51
PROVIDERS: PCP Family Medicine; Visit Provider Physician Assistant
DX: M10.9 Gout, unspecified (principal)
CPT/HCPCS: 36415; 80048; 84550

== ENCOUNTER 2023-06-01 11:04 | Outpatient (CLI) | payer OTHER, SELFPAY ==
[2023-06-01 12:04] LABS: Alanine Aminotransferase 18 U/L (6-50); Albumin Level 4.1 g/dL (3.5-5.1); Alkaline Phosphatase 62 U/L (38-126); Anion Gap 7 mmol/L (8-16); Aspartate Amino Transferase 17 U/L (17-59); Bilirubin,Total 0.7 mg/dL (0.2-1.3); Blood Urea Nitrogen 31 mg/dL (9-20); Calcium 9.4 mg/dL (8.4-10.2); Carbon Dioxide 28 mmol/L (22-30); Chloride 102 mmol/L (98-107); Estimated Glomerular Filt Rate 49; Glucose 111 mg/dL (65-110); Potassium 4.2 mmol/L (3.4-5.0); Sodium 137 mmol/L (137-145); Uric Acid 7.4 mg/dL (3.5-8.5)
== END 2023-06-01 11:05 | disposition home or self-care (01) ==
LOC: ANHLAB 11:07
PROVIDERS: PCP Family Medicine; Visit Provider Family Medicine
DX: M10.9 Gout, unspecified (principal); I10 Essential (primary) hypertension
CPT/HCPCS: 36415; 80053; 84550

== ENCOUNTER 2023-07-07 12:22 | Outpatient (CLI) | payer OTHER, SELFPAY ==
--- NOTE | ~2023-07-07 | XR_ITS ---
EXAMINATION: XR chest 2V 07/07/2023 12:36 INDICATION: Chronic cough PROCEDURE: 2 view chest COMPARISON: 10/19/2021 FINDINGS: The lungs are clear. The cardiomediastinal silhouette is within normal limits. There are no pleural effusions. There is no pneumothorax suspected. IMPRESSION: 1: NO ACUTE CARDIOPULMONARY DISEASE. Reviewed, dictated and finalized at location B.
== END 2023-07-07 12:23 | disposition home or self-care (01) ==
LOC: ANHIMG 12:24
PROVIDERS: PCP Family Medicine; Visit Provider Physician Assistant
DX: R05.3 Chronic cough (principal)
CPT/HCPCS: 71046

== ENCOUNTER 2023-07-15 10:13 | Outpatient (CLI) | payer OTHER, SELFPAY ==
--- NOTE | ~2023-07-15 | CT_ITS ---
CT Scan of the Chest without Contrast: Clinical Indication: Lung cancer screening, nicotine dependence Technique: Contiguous sections were acquired throughout the chest without intravenous contrast. Dose reduction technique was used on this scan by utilizing automated exposure control and iterative recon struction technique. The dose-length product (DLP) was 368.27 mGy-cm. COMPARISON: 06/23/2022 Findings: There is no evidence of any significant mediastinal, hilar or axillary lymphadenopathy. There are ath erosclerotic calcific effusion of the aorta and coronary arteries. Calcified subcarinal and right hil ar lymph nodes are present. There is no evidence of pleural or pericardial effusion. Stable subcentimeter pleural-based nodule at the posterior right upper lobe. Images through the upper abdomen reveal no abnormalities. Impression: Lung RADS 2: Benign appearance. 12 month follow-up screening CT advised. Reviewed, dictated and finalized at [facility]. Impression: Lung RADS 2: Benign appearance. 12 month follow-up screening CT advised.
== END 2023-07-15 10:14 ==
LOC: MICIMG 10:14
PROVIDERS: PCP Family Medicine; Visit Provider Family Medicine
DX: Z12.2 Encounter for screening for malignant neoplasm of respiratory organs (principal); Z87.891 Personal history of nicotine dependence
CPT/HCPCS: 71271

== ENCOUNTER 2023-09-01 09:37 | Outpatient (CLI) | payer OTHER, SELFPAY ==
[2023-09-01 10:39] LABS: Alanine Aminotransferase 17 U/L (6-50); Albumin Level 4.2 g/dL (3.5-5.1); Alkaline Phosphatase 57 U/L (38-126); Anion Gap 7 mmol/L (4-12); Aspartate Amino Transferase 17 U/L (17-59); Bilirubin,Total 0.6 mg/dL (0.2-1.3); Blood Urea Nitrogen 27 mg/dL (9-20); Carbon Dioxide 26 mmol/L (22-30); Chloride 105 mmol/L (98-107); Estimated Glomerular Filt Rate 59; Glucose 98 mg/dL (65-110); Potassium 4.2 mmol/L (3.4-5.0); Sodium 138 mmol/L (137-145)
== END 2023-09-01 09:38 | disposition home or self-care (01) ==
LOC: ANHLAB 09:38
PROVIDERS: PCP Family Medicine; Visit Provider Family Medicine
DX: I10 Essential (primary) hypertension (principal)
CPT/HCPCS: 36415; 80053

== ENCOUNTER 2023-12-07 10:41 | Outpatient (CLI) | payer OTHER, SELFPAY ==
[2023-12-07 11:31] LABS: Alanine Aminotransferase 20 U/L (6-50); Albumin Level 4.3 g/dL (3.5-5.1); Alkaline Phosphatase 63 U/L (38-126); Anion Gap 10 mmol/L (4-12); Aspartate Amino Transferase 17 U/L (17-59); Bilirubin,Total 0.7 mg/dL (0.2-1.3); Blood Urea Nitrogen 24 mg/dL (9-20); Calcium 9.2 mg/dL (8.4-10.2); Carbon Dioxide 25 mmol/L (22-30); Chloride 100 mmol/L (98-107); Estimated Glomerular Filt Rate 59; Glucose 99 mg/dL (65-110); Potassium 4.3 mmol/L (3.4-5.0); Sodium 135 mmol/L (137-145)
== END 2023-12-07 10:42 | disposition home or self-care (01) ==
LOC: ANHLAB 10:43
PROVIDERS: PCP Family Medicine; Visit Provider Family Medicine
DX: I10 Essential (primary) hypertension (principal)
CPT/HCPCS: 36415; 80053

== ENCOUNTER 2024-05-29 07:25 | Outpatient (CLI) | payer OTHER, SELFPAY ==
--- OUTSIDE RECORDS SUMMARY | 2024-05-29 07:30 | XMS_ITS | Clinical Summary ---
Author Organization [facility] Address [facility] [place] [address] Care Team Providers Care Automatic Wheel Line Operator Name Role Phone Unavailable Primary Care Provider Unavailabl e Social History Tobacco Use Types Packs/Day Years Used Date Smoking Tobacco: Never Assessed Sex and Gender Information Value Date Recorded Sex Assigned at Not on file Legal Sex Male 6:08 PM CDT Gender Identity Not on file Sexual Orientation Not on file Plan of Treatment Health Maintenance Due Date Last Done Comments Hepatitis C 1963 DTaP, Tdap and Td Vaccines ( 1 - Tdap) 1965 Zoster Vaccines (1 of 2) 1996 Pneumococcal Vaccine: 65+ Ye ars (1 of 1 - PCV) 07/28/2011 RSV Immunization or 60+ Years (1 - 1-dose 75+ series) 2021 COVID-19 Vaccine ( - 2023-2 5 season) 2023 Influenza Adult (#1) 2024 Meningococcal B Vaccine Aged Out No l onger eligible based on patient's age to complete this topic Meningococcal Vaccine Aged Out No nicolas kayce eligible based on patient's age to complete this topic RSV Immunizations Under 20 Months Aged Out No longer eligible based on patient's age to complete this topic
[2024-05-29 08:15] LABS: Hematocrit 47.9 % (42.0-52.0); Hemoglobin 15.2 g/dL (14.0-18.0); Mean Corpuscular HGB Conc 31.7 g/dl (32-36); Mean Corpuscular Hemoglobin 30.6 pg (26-34); Mean Corpuscular Volume 96.6 fl (80-100); Mean Platelet Volume 11.3 fl (7.4-10.4); Platelet Count Result 231 k/mm3 (150-375); Red Blood Count 4.96 M/mm3 (4.6-6.20); Red Cell Distribution Width 14.3 % (11.5-14.5)
[2024-05-29 08:15] LABS: Add Urine Microscopic? YES; Appearance Urine Clear (Clear); Bacteria Urine None Seen /hpf; Bilirubin Urine Negative (Negative); Blood Urine Negative (Negative); Color Urine Yellow (Yellow); Glucose Urine UA Negative (Negative); Ketones Urine Negative (Negative); Leukocyte Esterase Ur Negative LEU/UL (Negative); Nitrate Urine Negative (Negative); Non Pathogenic Casts 0-2; Protein Urine Trace mg/dL (Negative); RBC Urine 0-2 /hpf (0-2); Squamous Epithelial Cell Urine None Seen /hpf (Few); Urobilinogen Urine 0.2 mg/dL (<2.0); WBC Urine 0-5 /hpf (0-3)
[2024-05-29 08:27] LABS: Alanine Aminotransferase 24 U/L (6-50); Alkaline Phosphatase 65 U/L (38-126); Anion Gap 7 mmol/L (4-12); Aspartate Amino Transferase 18 U/L (17-59); Bilirubin,Total 0.6 mg/dL (0.2-1.3); Blood Urea Nitrogen 22 mg/dL (9-20); Calcium 9.2 mg/dL (8.4-10.2); Carbon Dioxide 31 mmol/L (22-30); Chloride 101 mmol/L (98-107); Cholesterol 198 mg/dL (0-200); Estimated Glomerular Filt Rate > 60; Glucose 104 mg/dL (65-110); HDL Direct 64 mg/dL; Potassium 3.8 mmol/L (3.4-5.0); Sodium 139 mmol/L (137-145); Triglycerides 129 mg/dL (<150); Uric Acid 5.5 mg/dL (3.5-8.5)
[2024-05-29 08:38] LABS: LDL Cholesterol Direct 114 mg/dL
== END 2024-05-29 07:26 | disposition home or self-care (01) ==
LOC: ANHLAB 07:27
PROVIDERS: PCP Family Medicine; Visit Provider Physician Assistant
DX: E04.1 Nontoxic single thyroid nodule (principal); I10 Essential (primary) hypertension; R79.89 Other specified abnormal findings of blood chemistry; M54.50 Low back pain, unspecified; G89.29 Other chronic pain; M10.9 Gout, unspecified; E66.9 Obesity, unspecified
CPT/HCPCS: 36415; 80053; 80061; 81001; 84443; 84550; 85027

== ENCOUNTER 2024-06-17 07:34 | Outpatient (CLI) | payer OTHER, SELFPAY ==
--- OUTSIDE RECORDS SUMMARY | 2024-06-17 07:36 | XMS_ITS | Clinical Summary ---
Author Organization [facility] Address [facility] [place] [address] Care Team Providers Care Medicaid Analyst Name Role Phone Unavailable Primary Care Provider [...]
[2024-06-17 09:09] LABS: Free T4 Free Thyroxine 1.18 ng/dL (0.78-2.19)
== END 2024-06-17 07:35 | disposition home or self-care (01) ==
LOC: ANHLAB 07:35
PROVIDERS: PCP Family Medicine; Visit Provider Physician Assistant Medical
DX: E05.90 Thyrotoxicosis, unspecified without thyrotoxic crisis or storm (principal); R79.89 Other specified abnormal findings of blood chemistry
CPT/HCPCS: 36415; 84439; 84443

== ENCOUNTER 2024-09-20 08:36 | Outpatient (CLI) | payer OTHER, SELFPAY ==
--- NOTE | ~2024-09-20 | CT_ITS ---
CT Scan of the Chest without Contrast: Clinical Indication: Pulmonary nodule Technique: Contiguous sections were acquired throughout the chest without intravenous contrast. Dose reduction technique was used on this scan by utilizing automated exposure control and iterative recon struction technique. The dose-length product (DLP) was 622.15 mGy-cm. COMPARISON: 07/15/2023 Findings: There is no evidence of any significant mediastinal, hilar or axillary lymphadenopathy. Calcified med iastinal and right hilar lymph nodes are present coronary artery calcifications are present. There is no evidence of pleural or pericardial effusion. Stable tiny pleural-based nodule posterior right upper lobe. Images through the upper abdomen reveal small hiatal hernia. Impression: Stable tiny pleural-based nodule at the posterior right upper lobe. Reviewed, dictated and finalized at location . Impression: Stable tiny pleural-based nodule at the posterior right upper lobe.
== END 2024-09-20 08:37 | disposition home or self-care (01) ==
LOC: MICIMG 08:38
PROVIDERS: PCP Family Medicine; Visit Provider Physician Assistant Medical
DX: R91.1 Solitary pulmonary nodule (principal)
CPT/HCPCS: 71250

== ENCOUNTER 2024-11-24 09:53 | Outpatient (CLI) | payer OTHER, SELFPAY ==
[2024-11-24 10:39] LABS: Alanine Aminotransferase 23 U/L (6-50); Albumin Level 4.2 g/dL (3.5-5.1); Alkaline Phosphatase 68 U/L (38-126); Anion Gap 7 mmol/L (4-12); Aspartate Amino Transferase 21 U/L (17-59); Bilirubin,Total 0.5 mg/dL (0.2-1.3); Blood Urea Nitrogen 24 mg/dL (9-20); Calcium 9.3 mg/dL (8.4-10.2); Carbon Dioxide 25 mmol/L (22-30); Chloride 106 mmol/L (98-107); Estimated Glomerular Filt Rate > 60; Glucose 100 mg/dL (65-110); Potassium 4.2 mmol/L (3.4-5.0); Sodium 138 mmol/L (137-145); Total Protein 7.3 g/dL (6.3-8.2)
[2024-11-24 10:55] LABS: Free T4 Free Thyroxine 0.88 ng/dL (0.78-2.19)
[2024-11-24 11:50] LABS: Thyroid Stimulating Hormone 3.070 uIU/mL (0.465-4.680)
== END 2024-11-24 09:54 | disposition home or self-care (01) ==
LOC: ANHLAB 09:54
PROVIDERS: PCP Family Medicine; Visit Provider Physician Assistant Medical
DX: M54.50 Low back pain, unspecified (principal); G89.29 Other chronic pain; I10 Essential (primary) hypertension; R79.89 Other specified abnormal findings of blood chemistry; F11.90 Opioid use, unspecified, uncomplicated
CPT/HCPCS: 36415; 80053; 80307; 84439; 84443